=== PATIENT | female | born 1955 | race Caucasian/White ===

== ENCOUNTER 2018-05-11 18:29 | Emergency (ER) | payer BC ==
--- NOTE | 2018-05-11 18:41 | ER Report ---
History and Physical Time Seen By MD: 18:41 HPI/ROS CHIEF COMPLAINT: Abdominal pain, blood in stool, constipation, mucousy stool HISTORY OF PRESENT ILLNESS: 62-year-old female patient presents to the emergency room with complaint of abdominal pain, blood in stool, constipation and mucousy stool. Patient states that she has been having this for the past 6 months. She states that she's had several bouts of constipation. States she's had some diarrhea. She states that she's noticed some mucousy bloody stools. She denies having any nausea, vomiting. She denies having any fevers. She states she is not taking any medication for this. She states that she is also seen a healthcare provider in 25 years. She states that she has not had a colonoscopy. She states that her mother at age 75 due to colon cancer. Patient states she's also lost 15 pounds over the last few months without any changes in diet or exercise. REVIEW OF SYSTEMS: Respiratory: No cough, no dyspnea. Cardiovascular: No chest pain, no palpitations. Gastrointestinal: As noted above Musculoskeletal: No back pain. Allergies: Coded Allergies: Sulfa (Sulfonamide Antibiotics) (Verified Allergy, Unknown, 05/11/18) Uncoded Allergies: detergant (Allergy, Intermediate, sinus congestion/cysts in sinus, ) Home Meds No Active Prescriptions or Reported Meds Past Medical/Surgical History Patient has a past medical history of hyperlipidemia, asthma, hypothyroidism. Patient has surgical history of cyst removed from sinuses. Reviewed Nurses Notes: Yes Constitutional Vital Sign - Last 24 Hours 05/11/18 05/11/18 05/11/18 05/11/18 18:34 18:44 18:59 19:00 Temp 98.9 Pulse 82 77 75 Resp 20 16 14 B/P (MAP) 139/82 115/70 (85) Pulse Ox 97 97 97 O2 Delivery Room Air 05/11/18 05/11/18 05/11/18 05/11/18 19:14 19:29 19:30 20:02 Pulse 64 67 Resp 13 15 B/P (MAP) 110/60 (77) 114/73 (87) Pulse Ox 99 96 05/11/18 05/11/18 05/11/18 05/11/18 20:14 20:15 20:30 20:45 Pulse 64 67 69 77 Resp 7 11 10 20 B/P (MAP) 126/73 (90) Pulse Ox 95 94 95 100 O2 Delivery Room Air 05/11/18 05/11/18 21:00 21:30 B/P (MAP) 127/115 (119) 107/80 (89) Physical Exam General Appearance: The patient is alert, has no immediate need for airway protection and no current signs of toxicity. Respiratory: Chest is non tender, lungs are clear to auscultation. Cardiac: regular rate and rhythm Gastrointestinal: Abdomen is soft and tender in the epigastric region, no masses, bowel sounds normal. Musculoskeletal: Neck: Neck is supple and non tender. Extremities have full range of motion and are non tender. Skin: No rashes or lesions. DIFFERENTIAL DIAGNOSIS: After history and physical exam differential diagnosis was considered for abdominal pain including but not limited to appendicitis, cholecystitis, gastritis and urinary tract infection. Medical Decision Making Data Points Result Diagram: 05/11/18190405/11/181904 Laboratory Hematology Test 05/11/18 18:33 05/11/18 19:05 05/11/18 19:58 Urine Color Straw Urine Clarity Clear Urine pH 6.0 pH (4.8-9.5) Urine Specific [place] 1.006 Urine Protein Negative mg/dL (NEGATIVE) Urine Glucose (UA) Negative mg/dL (NEGATIVE) Urine Ketones 20 mg/dL (NEGATIVE) Urine Blood Negative (NEGATIVE) Urine Nitrite Negative (NEGATIVE) Urine Bilirubin Negative (NEGATIVE) Urine Urobilinogen Negative mg/dL (0.2-1.9) Urine Leukocyte Esterase Negative (NEGATIVE) Urine RBC 1 /HPF (0-2/HPF) Urine WBC <1 /HPF (0-5/HPF) Urine Squamous Epithelial Cells Few /LPF (</=FEW) Urine Bacteria Negative /HPF (NONE-FEW) Urine Mucus None /HPF (NONE-FEW) Red Blood Count 4.90 M/uL (4.17-5.56) Mean Corpuscular Volume 86.3 fL (80.0-96.0) Mean Corpuscular Hemoglobin 28.9 pg (26.0-33.0) Mean Corpuscular Hemoglobin Concent 33.5 g/dL (32.0-36.0) Red Cell Distribution Width 14.8 % (11.5-14.5) Mean Platelet Volume 7.7 fL (7.2-11.1) Neutrophils (%) (Auto) 68.7 % (39.4-72.5) Lymphocytes (%) (Auto) 22.2 % (17.6-49.6) Monocytes (%) (Auto) 6.7 % (4.1-12.4) Eosinophils (%) (Auto) 1.8 % (0.4-6.7) Basophils (%) (Auto) 0.6 % (0.3-1.4) Nucleated RBC Relative Count (auto) 0.0 /100WBC Neutrophils # (Auto) 4.1 K/uL (2.0-7.4) Lymphocytes # (Auto) 1.3 K/uL (1.3-3.6) Monocytes # (Auto) 0.4 K/uL (0.3-1.0) Eosinophils # (Auto) 0.1 K/uL (0.0-0.5) Basophils # (Auto) 0.0 K/uL (0.0-0.1) Nucleated RBC Absolute Count (auto) 0.00 K/uL Sodium Level 136 mmol/L (137-145) Potassium Level 3.9 mmol/L (3.5-5.0) Chloride Level 98 mmol/L (98-107) Carbon Dioxide Level 24 mmol/L (22-31) Blood Urea Nitrogen 11 mg/dl (7-18) Creatinine 0.80 mg/dl (0.52-1.04) Glomerular Filtration Rate Calc > 60.0 Random Glucose 118 mg/dl (75-110) Calcium Level 9.5 mg/dl (8.4-10.2) Total Bilirubin 0.3 mg/dl (0.2-1.3) Aspartate Amino Transf (AST/SGOT) 26 U/L (0-35) Alanine Aminotransferase (ALT/SGPT) 16 U/L (0-56) Alkaline Phosphatase 69 U/L (0-126) C-Reactive Protein < 0.5 mg/dl (<1.0) Total Protein 7.5 g/dl (6.3-8.2) Albumin 4.5 g/dl (3.5-5.0) Amylase Level 79 U/L (0-110) Lipase 95 U/L (23-300) Stool Occult Blood (IFOB) Positive (NEGATIVE) Chemistry Test 05/11/18 18:33 05/11/18 19:05 05/11/18 19:58 Urine Color Straw Urine Clarity Clear Urine pH 6.0 pH (4.8-9.5) Urine Specific [place] 1.006 Urine Protein Negative mg/dL (NEGATIVE) Urine Glucose (UA) Negative mg/dL (NEGATIVE) Urine Ketones 20 mg/dL (NEGATIVE) Urine Blood Negative (NEGATIVE) Urine Nitrite Negative (NEGATIVE) Urine Bilirubin Negative (NEGATIVE) Urine Urobilinogen Negative mg/dL (0.2-1.9) Urine Leukocyte Esterase Negative (NEGATIVE) Urine RBC 1 /HPF (0-2/HPF) Urine WBC <1 /HPF (0-5/HPF) Urine Squamous Epithelial Cells Few /LPF (</=FEW) Urine Bacteria Negative /HPF (NONE-FEW) Urine Mucus None /HPF (NONE-FEW) White Blood Count 6.0 k/uL (4.5-11.0) Red Blood Count 4.90 M/uL (4.17-5.56) Hemoglobin 14.2 g/dL (12.0-16.0) Hematocrit 42.3 % (34.0-47.0) Mean Corpuscular Volume 86.3 fL (80.0-96.0) Mean Corpuscular Hemoglobin 28.9 pg (26.0-33.0) Mean Corpuscular Hemoglobin Concent 33.5 g/dL (32.0-36.0) Red Cell Distribution Width 14.8 % (11.5-14.5) Platelet Count 276 K/uL (150-450) Mean Platelet Volume 7.7 fL (7.2-11.1) Neutrophils (%) (Auto) 68.7 % (39.4-72.5) Lymphocytes (%) (Auto) 22.2 % (17.6-49.6) Monocytes (%) (Auto) 6.7 % (4.1-12.4) Eosinophils (%) (Auto) 1.8 % (0.4-6.7) Basophils (%) (Auto) 0.6 % (0.3-1.4) Nucleated RBC Relative Count (auto) 0.0 /100WBC Neutrophils # (Auto) 4.1 K/uL (2.0-7.4) Lymphocytes # (Auto) 1.3 K/uL (1.3-3.6) Monocytes # (Auto) 0.4 K/uL (0.3-1.0) Eosinophils # (Auto) 0.1 K/uL (0.0-0.5) Basophils # (Auto) 0.0 K/uL (0.0-0.1) Nucleated RBC Absolute Count (auto) 0.00 K/uL Glomerular Filtration Rate Calc > 60.0 Calcium Level 9.5 mg/dl (8.4-10.2) Total Bilirubin 0.3 mg/dl (0.2-1.3) Aspartate Amino Transf (AST/SGOT) 26 U/L (0-35) Alanine Aminotransferase (ALT/SGPT) 16 U/L (0-56) Alkaline Phosphatase 69 U/L (0-126) C-Reactive Protein < 0.5 mg/dl (<1.0) Total Protein 7.5 g/dl (6.3-8.2) Albumin 4.5 g/dl (3.5-5.0) Amylase Level 79 U/L (0-110) Lipase 95 U/L (23-300) Stool Occult Blood (IFOB) Positive (NEGATIVE) Urinalysis Test 05/11/18 18:33 Urine Color Straw Urine Clarity Clear Urine pH 6.0 pH (4.8-9.5) Urine Specific [place] 1.006 Urine Protein Negative mg/dL (NEGATIVE) Urine Glucose (UA) Negative mg/dL (NEGATIVE) Urine Ketones 20 mg/dL (NEGATIVE) Urine Blood Negative (NEGATIVE) Urine Nitrite Negative (NEGATIVE) Urine Bilirubin Negative (NEGATIVE) Urine Urobilinogen Negative mg/dL (0.2-1.9) Urine Leukocyte Esterase Negative (NEGATIVE) Urine RBC 1 /HPF (0-2/HPF) Urine WBC <1 /HPF (0-5/HPF) Urine Squamous Epithelial Cells Few /LPF (</=FEW) Urine Bacteria Negative /HPF (NONE-FEW) Urine Mucus None /HPF (NONE-FEW) EKG/Imaging Imaging ABDOMEN/PELVIS WITH CONTRAST HISTORY: Abdominal pain. No bowel movement x6 days. TECHNIQUE: CT abdomen and pelvis with intravenous contrast. One of the following dose optimization techniques was utilized in the performance of this exam: Automated exposure control; adjustment of the mA and/or kV according to the patient's size; or use of an iterative reconstruction technique. Specific details can be referenced in the facility's radiology CT exam operational policy. CONTRAST: 75 mL Isovue-370. COMPARISON: None. FINDINGS: Visualized lung bases: Negative. Hepatobiliary: 2 subcentimeter hypodensities within the liver which are too small to characterize however statistically represents simple cysts. Otherwise negative. Gallbladder is unremarkable. Spleen: Negative. Adrenals: Negative. Pancreas: Negative. Kidneys/: Exophytic cyst extending off the superior pole of the right kidney measuring up to 3.5 cm. Moderate bladder distention. Subcentimeter enhancing focus within the anterior lower uterine body, likely representing a small fibroid. Otherwise negative. GI: There appears to be a short segment of mild/moderate circumferential wall thickening within the distal sigmoid colon measuring approximately 4.9 cm in diameter (sagittal image 54). No visualized pericolonic soft tissue or lymphadenopathy. There is large volume stool burden within the remaining proximal colon. Appendix is partially visualized and unremarkable. Vessels/spaces/nodes: Negative. No visualized lymphadenopathy. Bones/soft tissues: Negative. IMPRESSION: 1. Apparent short segment of mild/moderate circumferential wall thickening of the distal colon. This is nonspecific and could be related to underdistention however underlying malignancy must be excluded. Colonoscopy is recommended. 2. Large volume stool within the colon. There does not appear to be an abrupt transition point at the area of circular ventral wall thickening or elsewhere to suggest a focal obstruction. 3. Moderate bladder distention. 4. No definitive evidence for potential metastasis. There are 2 nonspecific subcentimeter hypoattenuating lesions within the liver which are too small to characterize however statistically represents simple cysts. 5. Additional incidental/chronic findings, as above. Report Dictated By: Angelo Kaur MD at 05/11/2018 8:07 PM Report E-Signed By: Angelo Kaur MD at 05/11/2018 8:15 PM ED Course/Re-evaluation ED Course Patient was admitted to an exam room, history and physical were obtained. Differential diagnoses were considered. On examination lungs are clear, heart is regular, abdomen is soft and tender in the epigastric region. With the patient complaining about the weight loss, mucus and bleeding from the rectum, I do have concerns about possible cancer. A CBC, CMP, CRP, urinalysis, CT scan of abdomen and pelvis were done. Lab results were unremarkable, CT scan did show some thickening at the distal colon as well as constipation. I discussed the findings with the patient. I would like the patient to follow-up with Dr. Simmons sooner. I did call and discuss the case with Dr. Simmons. He reviewed the CT scan and stated that he would to have his nurse contact the patient. In the meantime we are going to go ahead and treat her constipation. Patient received an enema here in the emergency room. She did have good results and states she did have some improvement in her comfort. All she did have some cramping sensation in the epigastric region. I felt that was likely related to the enema itself increasing peristalsis throughout the colon. We will go ahead and discharge patient home at this time. We will have her take magnesium citrate upon returning to the house. When she has good results I will like her to go ahead and start taking MiraLAX as well as Colace twice a day. I discussed this with the patient and her friend and they verbalized understanding and agreement with plan. Decision to Disposition Date: May 11, 2018 Decision to Disposition Time: 21:28 Depart Departure Latest Vital Signs Vital Signs Date Time Temp Pulse Resp B/P (MAP) Pulse Ox O2 Delivery O2 Flow Rate FiO2 05/11/18 21:30 107/80 (89) 05/11/18 20:45 77 20 100 05/11/18 20:30 Room Air 05/11/18 18:34 98.9 Impression: Primary Impression: Constipation Additional Impression: Abdominal pain Condition: Improved Disposition: HOME OR SELF-CARE New Scripts No Active Prescriptions or Reported Meds Patient Instructions: Constipation (ED) Additional Instructions: Increase fluid intake. Increase exercise. Follow up with Dr. Simmons, his nurse will call you tomorrow to make an appointment. Take Miralax, 1 capful, daily. Take Colace twice a day. Return to the ER if condition worsens. Limit activity by pain. Problem Qualifiers Primary Impression: Constipation Constipation type: unspecified constipation type Qualified Codes: K59.00 - Constipation, unspecified Additional Impression: Abdominal pain Abdominal location: epigastric Qualified Codes: R10.13 - Epigastric pain MARLYGILBERTVelvet BECK May 11, 2018 18:41
[2018-05-11] MEDS ORDERED: NS(*) 0.9% 500 ML BAG 500 ML IV ONE (18:54)
[2018-05-11 19:16] LABS: PLATELET COUNT, AUTOMATED 276 K/uL (150-450)
[2018-05-11] MEDS ORDERED: IOPAMIDOL 76% 75 ML INFUS BTL 75 ML ONE (19:48)
--- NOTE | 2018-05-11 20:18 | RADIOLOGY IMAGING REPORT ---
FACILITY: [facility] - [place] PATIENT NAME: Elma Leigh : 1955 MR: [id number] V: [id number] EXAM DATE: ORDERING PHYSICIAN: MARIN LUKE TECHNOLOGIST: [place] [facility] [place] Elma Leigh : 1955 Visit/Account:[id number] Date of Sevice: 05/11/2018 ABDOMEN/PELVIS WITH CONTRAST HISTORY: Abdominal pain. No bowel movement x6 days. TECHNIQUE: CT abdomen and pelvis with intravenous contrast. One of the following dose optimization techniques was utilized in the performance of this exam: Autom ated exposure control; adjustment of the mA and/or kV according to the patient's size; or use of an i terative reconstruction technique. Specific details can be referenced in the facility's radiology C T exam operational policy. CONTRAST: 75 mL Isovue-370. COMPARISON: None. FINDINGS: Visualized lung bases: Negative. Hepatobiliary: 2 subcentimeter hypodensities within the liver which are too small to characterize ho wever statistically represents simple cysts. Otherwise negative. Gallbladder is unremarkable. Spleen: Negative. Adrenals: Negative. Pancreas: Negative. Kidneys/: Exophytic cyst extending off the superior pole of the right kidney measuring up to 3.5 c m. Moderate bladder distention. Subcentimeter enhancing focus within the anterior lower uterine body, likely representing a small fibroid. Otherwise negative. GI: There appears to be a short segment of mild/moderate circumferential wall thickening within the distal sigmoid colon measuring approximately 4.9 cm in diameter (sagittal image 54). No visualized pe ricolonic soft tissue or lymphadenopathy. There is large volume stool burden within the remaining pro ximal colon. Appendix is partially visualized and unremarkable. Vessels/spaces/nodes: Negative. No visualized lymphadenopathy. Bones/soft tissues: Negative. IMPRESSION: 1. Apparent short segment of mild/moderate circumferential wall thickening of the distal colon. This is nonspecific and could be related to underdistention however underlying malignancy must be excluded . Colonoscopy is recommended. 2. Large volume stool within the colon. There does not appear to be an abrupt transition point at the area of circular ventral wall thickening or elsewhere to suggest a focal obstruction. 3. Moderate bladder distention. 4. No definitive evidence for potential metastasis. There are 2 nonspecific subcentimeter hypoattenua ting lesions within the liver which are too small to characterize however statistically represents si mple cysts. 5. Additional incidental/chronic findings, as above. Report Dictated By: Angelo Kaur MD at 05/11/2018 8:07 PM Report E-Signed By: Angelo Kaur MD at 05/11/2018 8:15 PM WSN:[id number]
[2018-05-11 21:30] VITALS: BP 107/80
[2018-05-11] MEDS ORDERED: MAGNESIUM CITRATE 300 ML BTL PO ONE (21:30)
== END 2018-05-11 21:45 | disposition home or self-care (01) ==
LOC: ER 18:55
DX: K59.00 Constipation, unspecified (principal); R10.13 Epigastric pain
CPT/HCPCS: 81001; 82150; 82274; 83690; 85025; 86140; 96360; 99284; J7040; Q9967; 74177; 82040; 82247; 82310; 82374; 82435; 82565; 82947; 84075; 84132; 84155; 84295; 84450; 84460; 84520

== ENCOUNTER 2018-06-11 03:44 | Day surgery (SDC) | payer BC ==
[~2018-06-11] VITALS: Ht 167.6 cm; Wt 49.9 kg
[~2018-06-11 03:44] MED LIST: PANT40TA65 PO
[2018-06-11 09:15] LABS: PLATELET COUNT, AUTOMATED 277 K/uL (150-450)
[2018-06-11] MEDS ORDERED: LIDOCAINE/SOD BICARB 8.4% SYR ID ONE (09:30)
[2018-06-11] MEDS ORDERED: NORMOSOL R SOLN(*) 1000 ML BAG 1,000 ML IV PRN (09:30)
[2018-06-11] MEDS ORDERED: PROPOFOL EMUL(*) 10MG/ML 20 ML 40 ML ONE (10:05)
[2018-06-11 10:11] VITALS: BP 108/63
[2018-06-11 11:19] VITALS: BP 97/60
--- NOTE | 2018-06-11 11:37 | Short(Outpt) Discharge Summary ---
Discharge Summary Reason for Hosp/Final Diag: (1) Abnormal CT scan, sigmoid colon Status: Chronic Hospital Course & Plan: EGD with biopsies and partial colonoscopy with biopsy of sigmoid lesion completed. Only able to make it to distal sigmoid colon due to the circumferential mass. (2) Constipation Status: Chronic (3) Family history of polyps in the colon (4) Family history of colon cancer in mother Departure Discharge to: Home, Self Care Discharge Instructions Home Meds No Active Prescriptions or Reported Meds Follow up Referrals: General Surgery - 06/21/18 @ Surgery, General with TYRONE ALSTON MD You have a follow up appointment scheduled with Dr. Alston on 06/21/18, at 2:30pm. Diet: Regular Activity: As Tolerated Special Instructions: Your upper endoscopy was unremarkable. I biopsied your stomach and duodenum. Your colonoscopy was significant for a mass in your sigmoid colon which is consistent with the abnormality on your CT scan. I did biopsy this mass. My nurse will contact you later today to set up a chest CT to look for any lung abnormalities or tumors and I will see you back in my office on 06/21/18, at 2:30pm to discuss all of these results with you and to plan the next steps. Take 1 packet of Miralax every day to keep your stools soft and easy to pass the mass. If you get diarrhea on 1 packet daily you can try 1/2 packet every day and see how that works. Problem Qualifiers (1) Constipation: Constipation type: unspecified constipation type Qualified Codes: K59.00 - Constipation, unspecified TYRONE ALSTON MD Jun 11, 2018 11:37
[2018-06-11 11:46] VITALS: BP 104/63
[2018-06-11 12:15] VITALS: BP 118/74
[2018-06-11 13:15] VITALS: BP 95/68
[2018-06-11 13:17] VITALS: BP 96/58
== END 2018-06-11 13:40 | disposition home or self-care (01) ==
LOC: OR 03:44
PROVIDERS: ATTEND Surgery
DX: C18.7 Malignant neoplasm of sigmoid colon (principal); K59.09 Other constipation; Z83.71 Family history of colonic polyps; Z80.0 Family history of malignant neoplasm of digestive organs
CPT/HCPCS: 00813; 36415; 43239; 45380; 82378; 82607; 82746; 83516; 84443; 85025; 87077; 88305; 88344; J2704; 82040; 82247; 82310; 82374; 82435; 82565; 82947; 84075; 84132; 84155; 84295; 84450; 84460; 84520

== ENCOUNTER → 2018-06-18 | Outpatient (CLI) | payer BC ==
[~2018-06-18] MED LIST changes: +IOPAMIDOL 76% 75 ML INFUS BTL 75 ML ONE
--- NOTE | 2018-06-18 10:39 | RADIOLOGY IMAGING REPORT ---
FACILITY: [facility] - [place] PATIENT NAME: Elma Leigh : 1955 MR: [id number] V: [id number] EXAM DATE: ORDERING PHYSICIAN: TYRONE ALSTON TECHNOLOGIST: Location: [facility] - [place] Patient: Elma Leigh : 1955 Visit/Account:[id number] Date of Sevice: 06/18/2018 CHEST W CONTRAST History: Colon cancer TECHNIQUE: Contiguous axial images were performed through the chest to the level of the adrenal gla nds following the administration of IV contrast. Coronal and sagittal reformatting was also perform ed.Dose Lowering Technique One of the following dose optimization techniques was utilized in the performance of this exam: Autom ated exposure control; adjustment of the mA and/or kV according to the patient's size; or use of an i terative reconstruction technique. Specific details can be referenced in the facility's radiology C T exam operational policy. Contrast: 75 mL Isovue-370 COMPARISON STUDIES: CT abdomen and pelvis May 11, 2018. Lungs / Pleura: There is a 3 mm subpleural noncalcified nodule posterior medial left lower lobe bes t seen on image 271 of series 4. This area was not included on the prior study. There is an additional 3 mm subpleural nodule lateral aspect of the left lower lobe seen on image 26 4. There is an additional 3 mm subpleural nodule lateral aspect left lower lobe best seen on image 258 Mediastinum/nodes: negative. Heart and vessels: negative. Musculoskeletal / Body wall: There Is a gentle dextroconvex scoliosis of the thoracic spine. There is an enlarged thyroid gland containing multiple enlarged nodules left side is more affected th an the right. Thyroid ultrasound is recommended Upper abdomen: Subcentimeter hypodensity posterior aspect right lobe of the liver is too small to c haracterize. Mild thickening of the distal esophagus Incompletely imaged is the right renal cyst IMPRESSION: There are three pulmonary nodules measuring up to 3 mm as described above For multiple nodules measur ing less than 6 mm, in a low risk patient (minimal or absent smoking history, no history of malignanc y), no routine followup is recommended. In a high risk patient (smoking or malignancy history), optio nal 12 month followup can be obtained. Enlarged thyroid containing multiple enlarged nodules for which thyroid ultrasound is recommended Mild thickening of the distal esophagus clinical correlation needed Report Dictated By: Nicki Barry MD at 06/18/2018 10:14 AM Report E-Signed By: Nicki Barry MD at 06/18/2018 10:34 AM SHAN:[id number]
== END ==
LOC: CT 06-16 00:36
PROVIDERS: ATTEND Surgery
DX: E04.2 Nontoxic multinodular goiter (principal); R91.8 Other nonspecific abnormal finding of lung field; K22.8 Other specified diseases of esophagus
CPT/HCPCS: 71260; Q9967